=== PATIENT | male | born 1955 | race African-American/Black ===

== ENCOUNTER 2020-04-30 22:33 | Inpatient (IN) | payer OTHER ==
[~2020-04-30] VITALS: Ht 177.8 cm; Wt 69.9 kg
--- NOTE | ~2020-04-30 | EMS ---
[facility] [address] [place] [address] EMS Patient Care Report Name: SANDRA GILLILAND Room #: 242-P ADM IN M.R.#: [id number] Admission: 05/01/20 Attend Phys: Clint Spears MD Discharge: Date of : 51 Report #: [id number] THIS REPORT FOR: //name// Report Transmitted: 05/01/2020 14:16 EMS Care Summary [place], [place]/[facility] Incident [id number] @ 04/30/2020 21:45 Incident Location [address] [place] [id number] Patient SANDRA GILLILAND Male, 65 Years 1955 Patient Address Patient History Diabetes,Hypertension (HTN), Chief Complaint WEAKNESS/ALTERED MENTAL STATUS Disposition Transported No Lights/[place] Dispatch Reason Unconscious/Fainting Transported To [facility] Narrative DISPATCHED TO AN UNCONSCIOUS. 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 DAUGHTER STATED THAT HE FELL JUST BEFORE SHE CALLED AND WAS BECOMING INCREASINGLY "OUT OF IT". SHE SAID HE HAS BEEN ILL WITH FOOD POISIONING FOR THE PAST FEW DAYS WITH SYMPTOMS OF NAUSEA VOMMITING DIRRHEA AND SHE DOES NOT KNOW IF HE HAS TAKEN HIS MEDICATIONS OR NOT. PATIENT WAS FOUND TO BE SLOW TO RESPOND WHEN QUESTIONED AND UNAWARE OF THE CURRENT SITUATION. HE SAID HE WAS NOT HURTING ANYWHERE, BUT THAT HE JUST FELT WEAK. HIS BLOOD SUGAR AND VITALS WERE CHECKED BEDSIDE AND HE WAS PLACED ON OXYGEN VIA NASAL CANNULA. HE WAS ASSISTED IN STANDING AND SITTING ON THE STAIR CHAIR, SECURED WITH STRAPS, AND MOVED TO THE COT WHERE HE WAS [facility] [address] [place] [address] EMS Patient Care Report Name: SANDRA GILLILAND Room #: 242-P ADM IN M.R.#: [id number] Admission: 05/01/20 Attend Phys: Clint Spears MD Discharge: Date of : 51 Report #: [id number] ASSISTED IN STANDING AND SITTING ON THE COT, SECURED WITH STRAPS, AND MOVED TO THE AMBULANCE. PATIENT'S VITALS WERE REOBTAIND ALONG WITH A 12 LEAD. PATIENT O2 SATURATION WAS NOT ABLE TO BE CONSISTANTLY OBTAINED THROUGH EITHER PULSE OX DUE TO POOR CIRCULATION. HE SAID THIS WAS NORMAL FOR HIM. SEVERAL IVS WERE ATTEMPTED WITH NO SUCCESS, AND PATIENT WAS TRANSPORTED TO THE HOSPITAL. PATIENT VITALS AND INTERVENTIONS WERE MONITORED ENROUTE. ADDITIONAL IV WAS ATTEMPTED AND SECURED ENROUTE. PATIENT WAS ADMINISTERED NORMAL SALINE. PATIENT BECAME MORE ALERT DURING TRANSPORT AND HIS SITUATION WAS EXPLAINED. AGAIN HE SAID HE WAS STILL FEELING WEAK. UPON ARRIVAL AT THE HOSPITAL PATIENT WAS MOVED TO ED ROOM 6 ON THE COT AND LIFTED OVER TO THE HOSPITAL BED. PATIENT CARE WAS TURNED OVER TO ED NURSING STAFF. Initial Vitals @22:10P: 127,BP: 73/53, @21:55P: 68,SpO2: 82, @21:53P: 43,SpO2: 77, @22:29BP: 92/66, @22:31P: 124,SpO2: 72, @22:11P: 126,ID Suspected: false @22:26P: 122,R: 16,BP: 109/77,Pain: 0/10,GCS: 15,Revised Trauma: 12, @22:03P: 130,R: 16,BP: 62/42,Pain: 0/10,GCS: 14,Glucose: -2,Revised Trauma: 10, @22:01P: 66,SpO2: 67, Assessments @21:50MENTAL:Confused,Person Oriented,Place Oriented,SKIN:Cold,HEENT:Head/Face: No Abnormalities,Neck/Airway: No Abnormalities,LUNG SOUNDS:General: Vomiting,General: Nausea,General: Diarrhea,Left Upper: No Abnormalities,Right Upper: No Abnormalities,Left Lower: No Abnormalities,Right Lower: No Abnormalities,ABDOMEN:General: Vomiting,General: Nausea,General: Diarrhea,Left Upper: No Abnormalities,Right Upper: No Abnormalities,Left Lower: No Abnormalities,Right Lower: No Abnormalities,PELVIS//GI:No Abnormalities,EXTREMITIES:Capillary Refill: Right Upper: 3 Sec,Left Arm: No Abnormalities,Right Arm: No Abnormalities,Left Leg: No Abnormalities,Right Leg: No Abnormalities,PULSE:Radial: 2+ Normal,NEURO:Weakness Right-Sided,Weakness Left-Sided,@22:20MENTAL:Person Oriented,Place Oriented,Time Oriented,Event Oriented,SKIN:HEENT:LUNG SOUNDS:ABDOMEN:PELVIS//GI:EXTREMITIES:PULSE:NEURO: Impression Hypotension Procedures @22:1112-Lead ECGResponse: UnchangedSucceeded@21:533-Lead ECGResponse: UnchangedSucceeded@22:15Saline Lock 0cc (20 ga) Site: Antecubital-LeftResponse: UnchangedFailed@22:17Saline Lock 0cc (20 ga) Site: Hand-RightResponse: UnchangedFailed@22:18Saline Lock 0cc (20 ga) Site: Antecubital-RightResponse: UnchangedFailed@21:50ALS AssessmentResponse: UnchangedSucceeded@22:20Normal [address] [address] EMS Patient Care Report Name: SANDRA GILLILAND Room #: 242-P [facility] IN [facility]#: [id number] Admission: 05/01/20 Attend Phys: Clint Spears MD Discharge: Date of : 51 Report #: [id number] Saline (.9% NaCl) 200cc (20 ga) Site: Hand-RightResponse: UnchangedSucceeded@21:54Oxygen FlowRate: 4 Device: Nasal Cannula (NC) Response: ImprovedSucceeded Timeline 21:44,Call Received 21:44,Dispatch Notified 21:45,Dispatched 21:46,En Route 21:48,On Scene 21:50,At Patient 21:50,ALS Assessment,Response: UnchangedSucceeded, 21:53,3-Lead ECG,Response: UnchangedSucceeded, 21:53,BP: / M,PULSE: 43,RR: R,SPO2: 77 Ox,ETCO2: ,BG: ,PAIN: ,GCS: , 21:54,Oxygen FlowRate: 4 Device: Nasal Cannula (NC) Response: ImprovedSucceeded, 21:55,BP: / M,PULSE: 68,RR: R,SPO2: 82 Ox,ETCO2: ,BG: ,PAIN: ,GCS: , 22:01,BP: / M,PULSE: 66,RR: R,SPO2: 67 Ox,ETCO2: ,BG: ,PAIN: ,GCS: , 22:03,BP: 62/42 M,PULSE: 130,RR: 16 R,SPO2: Ox,ETCO2: ,BG: -2,PAIN: 0,GCS: 14, 22:10,BP: 73/53 M,PULSE: 127,RR: R,SPO2: Ox,ETCO2: ,BG: ,PAIN: ,GCS: , 22:11,12-Lead ECG,Response: UnchangedSucceeded, 22:11,BP: / M,PULSE: 126,RR: R,SPO2: Ox,ETCO2: ,BG: ,PAIN: ,GCS: , 22:15,Saline Lock 0cc 20 ga Site: Antecubital-Left,Response: UnchangedFailed, 22:17,Saline Lock 0cc 20 ga Site: Hand-Right,Response: UnchangedFailed, 22:18,Saline Lock 0cc 20 ga Site: Antecubital-Right,Response: UnchangedFailed, 22:18,Depart Scene 22:20,Normal Saline (.9% NaCl) 200cc 20 ga Site: Hand-Right,Response: UnchangedSucceeded, 22:26,BP: 109/77 M,PULSE: 122,RR: 16 R,SPO2: Ox,ETCO2: ,BG: ,PAIN: 0,GCS: 15, 22:29,At Destination 22:29,BP: 92/66 M,PULSE: ,RR: R,SPO2: Ox,ETCO2: ,BG: ,PAIN: ,GCS: , 22:31,BP: / M,PULSE: 124,RR: R,SPO2: 72 Ox,ETCO2: ,BG: ,PAIN: ,GCS: , 22:35,Call Closed Disclaimer v1.1 Copyright 2020 [employer] This EMS Care Summary contains data elements from the applicable legal record (which may be displayed differently). It is designed to provide pertinent information for the following purposes: continuity of care, clinical quality, and state data reporting. The complete legal record is available to ED staff and administrators of the receiving hospital in [employer] Patient Tracker. All data is provided "as is."
[~2020-04-30 22:33] MED LIST: CITRATE OF MAG296 ML PO; COLACE100 MG PO; CYCLOBENZAPRINE5 MG PO; GLYBURIDE 5 MG T5 M1 PO; HYDROCHLOROTHIA25 M2 PO; IBUPROFEN 800800 M1 PO; LEVEMIR SUBQ; LISINOPRIL10 MG PO; METFORMIN HCL500 MG PO; MIRALAX17 GM PO; RANITIDINE 150150 M1 PO
[2020-04-30 22:35] VITALS: BP 129/85
[2020-04-30 23:04] LABS: BE(vivo) -6.4 mmol/L (-2 to +3); HCO3 19.6 mmol/L (22.0-26.0); PCO2 VENOUS 40.8 mmHg (41.0-51.0); PO2 VENOUS 36.5 mmHg (35.0-45.0)
[2020-04-30 23:10] LABS: ABSOLUTE NEUTROPHILS 10.8 thou/uL (1.4-8.2); BASOPHILS 0.1 % (0.0-2.0); HEMATOCRIT 47.3 % (42.0-52.0); HEMOGLOBIN 14.9 gm/dL (14.0-18.0); LYMPHOCYTES 11.1 % (24.0-44.0); MCH 29.1 pg (26.0-34.0); MCHC 31.5 g/dL (28.0-37.0); MCV 92.3 fL (80.0-100.0); MONOCYTES 3.2 % (1.0-8.0); PLATELET COUNT 236 thou/uL (150-400); POLYS 85.6 % (36.0-66.0); RBC 5.13 mil/uL (4.50-6.00); RDW 14.2 % (10.5-14.5); WBC 12.6 thou/uL (4.0-11.0)
[2020-04-30 23:27] LABS: ALBUMIN 3.4 g/dL (3.4-5.0); ANION GAP 23 mmol/L (7-16); BUN 84 mg/dL (7-18); CALCIUM 9.8 mg/dL (8.5-10.1); CHLORIDE 94 mmol/L (98-107); CO2 22 mmol/L (21-32); POTASSIUM 5.5 mmol/L (3.5-5.1); SGOT 12 U/L (15-37); SGPT 22 U/L (30-65); SODIUM 139 mmol/L (136-145); TOTAL BILIRUBIN 0.7 mg/dL (0.2-1.0); TOTAL PROTEIN 7.7 g/dL (6.4-8.2); TROPONIN-I <0.06 ng/mL (<0.06)
[2020-04-30 23:29] LABS: URINE BILIRUBIN NEGATIVE (Negative); URINE BLOOD NEGATIVE (Negative); URINE CLARITY CLEAR; URINE COLOR YELLOW; URINE GLUCOSE-RANDOM* 3+ (Negative); URINE KETONES 1+ (Negative); URINE LEUKOCYTES-REFLEX NEGATIVE (Negative); URINE NITRITE-REFLEX NEGATIVE (Negative); URINE PROTEIN (DIPSTICK) NEGATIVE (Negative); URINE SPECIFIC GRAVITY 1.015 (1.005-1.035); URINE UROBILINOGEN 0.2 E.U./dl (0.2-1.0)
[2020-04-30 23:29] LABS: GLUCOSE 689 mg/dL (74-106)
[2020-04-30] MEDS ORDERED: PIOGLITAZONE30 MG PO (23:53)
[2020-04-30] MEDS ORDERED: PRAVACHOL40 MG PO (23:54)
[2020-04-30] MEDS ORDERED: LISINOPRIL PO (23:54)
[2020-04-30] MEDS ORDERED: METFORMIN HCL500 M3 PO (23:55)
[2020-04-30] MEDS ORDERED: LEVEMIR100 UNIT/1 SUBQ (23:56)
[2020-05-01] VITALS (44 sets, daily range): BP systolic 77–129; BP diastolic 41–84
[2020-05-01 03:17] LABS: HEMATOCRIT 42.3 % (42.0-52.0); MCH 29.4 pg (26.0-34.0); MCHC 33.1 g/dL (28.0-37.0); MCV 88.9 fL (80.0-100.0); RBC 4.76 mil/uL (4.50-6.00); RDW 13.9 % (10.5-14.5); WBC 14.2 thou/uL (4.0-11.0)
[2020-05-01 03:28] LABS: CALCIUM 8.8 mg/dL (8.5-10.1); CREATININE 2.3 mg/dL (0.7-1.3)
[2020-05-01 03:30] LABS: POTASSIUM 4.4 mmol/L (3.5-5.1)
[2020-05-01 03:47] LABS: ALBUMIN 3.3 g/dL (3.4-5.0); ANION GAP 19 mmol/L (7-16); BUN 78 mg/dL (7-18); CALCIUM 8.7 mg/dL (8.5-10.1); CHLORIDE 104 mmol/L (98-107); CHOLESTEROL 178 mg/dL (<200); CO2 23 mmol/L (21-32); CREATININE 2.7 mg/dL (0.7-1.3); GLUCOSE 442 mg/dL (74-106); HDL CHOLESTEROL 47 mg/dL (>40); LDL CHOLESTEROL 107 mg/dL (<100); PHOSPHORUS 3.8 mg/dL (2.5-4.9); POTASSIUM 4.5 mmol/L (3.5-5.1); SODIUM 146 mmol/L (136-145); TC:HDL 3.8 Ratio (Not establshd); TRIGLYCERIDE 123 mg/dL (<150); VLDL 25 mg/dL (<40)
[2020-05-01 03:48] LABS: SERUM ASSESSMENT Clear
--- NOTE | 2020-05-01 04:18 | NUR ---
TRIED TO CALL REPORT. NO ANSWER
--- NOTE | 2020-05-01 04:35 | NUR ---
TRIED TO CALL REPORT. NURSE UNAVAILABLE.
--- NOTE | 2020-05-01 04:41 | NUR ---
TRIED TO CALL REPORT. NO ANSWER.
--- NOTE | 2020-05-01 07:28 | NUR ---
ASSUMED PT CARE AT 0530 FROM ER. ADMISSION ASSESSMENT DONE. PT ON INSULIN GTT AT 8.6U/HR UPON ASUMPTION OF CARE TIRATED NEEDED. SPOKE TO DTR AND UPDATED HER ABOUT PT STATUS. PT IS STABLE FOR NOW. WILL CONTINUE TO MONITOR.
--- NOTE | 2020-05-01 08:05 | EKG ---
[facility] [place] [address] ELECTROCARDIOGRAM REPORT Name: SANDRA GILLILAND Room #: 242-P ADM IN M.R.#: [id number] Admission: 05/01/20 Attend Phys: Clint Spears MD Discharge: Date of : 51 Report #: [id number] THIS REPORT FOR: cc: [facility] - Clinic physician unknown [facility] - Clinic physician unknown Mohit Heath MD [facility] ~ THIS REPORT FOR: //name// [facility] ED Test Date: 2020-04-30 Test Time: 22:50:16 Pat Name: SANDRA GILLILAND Department: Room: [facility] Gender: M Note Specialist: [facility] 1955 Requested By: Cornell Amato Order Number: [id number] MD: Mohit Heath Measurements Intervals [place] Rate: 120 P: 76 CA: 115 QRS: 77 QRSD: 93 T: 8 QT: 330 QTc: 467 Interpretive Statements Sinus tachycardia Baseline wander in lead(s) V2,V5 No previous ECG available for comparison Electronically Signed On 05-01-2020 8:05:17 CDT by Mohit Heath [email or web address] <ELECTRONICALLY SIGNED> By: Mohit Heath MD, FACC 05/01/20 0805 [id number] Mohit Heath MD, [facility] /EPI
[2020-05-01 08:26] LABS: ALBUMIN 2.9 g/dL (3.4-5.0); CALCIUM 7.9 mg/dL (8.5-10.1); CREATININE 1.9 mg/dL (0.7-1.3); PHOSPHORUS 2.6 mg/dL (2.5-4.9); POTASSIUM 4.4 mmol/L (3.5-5.1)
[2020-05-01 11:05] LABS: ALBUMIN 2.6 g/dL (3.4-5.0); CALCIUM 7.5 mg/dL (8.5-10.1); CREATININE 1.7 mg/dL (0.7-1.3); PHOSPHORUS 1.1 mg/dL (2.5-4.9); POTASSIUM 3.5 mmol/L (3.5-5.1)
--- NOTE | 2020-05-01 13:33 | NUR ---
CALLED DR. PACHECO REGARDING PT'S LOW BLOOD GLUCOSE AND PT NAUSEOUS/VOMITING. ORDERS TO KEEP PT ON CLEAR LIQUIDS AND BRING THE BLOOD GLUCOSE UP.
--- NOTE | 2020-05-01 17:09 | NUR ---
chart review. pt on insulin drip. unable to visit with unruly marshall resting. noted per chart, daughter got him here, support from his daughter. independent when feeling ok. will cont following as needed for dc needs. dcp home when stable.
--- NOTE | 2020-05-01 19:46 | NUR ---
DR PACHECO ORDERED A ML FOR INSULIN GTT, VANCO, LAB DRAWS, ETC. ML NOT APPROPRIATE AND NEEDING A CLARIFICATION FOR A PICC. RN WANTED A PIV PLACED IN ADDITION TO THE PIV HE HAS. 2.5 INCH PIV PLACED RICHIE WITH NO VANCO LABELED. PT HAS A WORKING PIV IN LT WRIST AREA. PT ALSO EXTREMELY AGITATED AND INNAPROPRIATE.
[2020-05-02] VITALS (16 sets, daily range): BP systolic 76–116; BP diastolic 42–68
[2020-05-02 00:06] LABS: GLYCOHEMOGLOBIN (HGB A1C) 11.1 % (4.8-5.6)
--- NOTE | 2020-05-02 04:00 | NUR ---
ASSUMED CARE OF PT. CURRENTLY SLEEPING SINUS RHYTHM. MAINT IV AT 150/HR
[2020-05-02 05:36] LABS: ALBUMIN 2.1 g/dL (3.4-5.0); CALCIUM 7.1 mg/dL (8.5-10.1); CREATININE 1.4 mg/dL (0.7-1.3); PHOSPHORUS 1.8 mg/dL (2.5-4.9); POTASSIUM 3.4 mmol/L (3.5-5.1)
--- NOTE | 2020-05-02 06:00 | NUR ---
RESTING QUIETLY NO CONCERNS 1999 CC UO THIS SHIFT. DENIES DISCOMFORT WILL CONT TO MONITOR
[2020-05-02 06:06] LABS: HEMATOCRIT 28.6 % (42.0-52.0); MCH 29.9 pg (26.0-34.0); MCHC 33.4 g/dL (28.0-37.0); MCV 89.6 fL (80.0-100.0); RBC 3.19 mil/uL (4.50-6.00); RDW 14.1 % (10.5-14.5); WBC 9.3 thou/uL (4.0-11.0)
[2020-05-02 06:21] LABS: HEMOGLOBIN 9.5 gm/dL (14.0-18.0)
--- NOTE | 2020-05-02 09:10 | NUR ---
cm consult for dcp. desean spoke with bedside nurse, unruly reports he does has cell phone with him but doesnt know his number. therapy going to work with him and will cont following as needed for dc needs.
--- NOTE | 2020-05-02 10:44 | NUR ---
PATIENT ALERT AN AWAKE THIS MORNING, PLEASANT AND COOPERATIVE WITH CARES. DENIES PAIN, SOA, NAUSEA OR VOMITING. UP TO CHAIR WITH OCCUPATIONAL THERAPY WITH JUST CONTACT GAURD ASSIST. PATIENT ALSO GAVE SELF SPONGE BATH. PATIENT WAS ALSO ABLE TO WALK WITH PHYSICAL THERAPY AROUND THE ICU. DECENT APPITITE AT BREAKFAST THIS MORNING. NO CONCERNS AT THIS TIME. WILL CONTINUE TO MONITOR AND CARE PER PLAN OF CARE.
--- NOTE | 2020-05-02 14:34 | NUR ---
65 YR OLD MALE CAME IN WITH DKA, ACHS AND ON SLIDING SCALE, AND IS SINUS RYTHYM. PT IS A&OX4, VSS, AMBULATES BY CANE, WHEELCHAIR, WALKER. PT CAME FROM HOME AND IS ON CARB CONTROL DIET. PT NEED TO BE ON 3L OXYGEN WHILE SLEEP. RIGHT FOOT PARTIAL AMPUTATED. FALL PRECAUTIONS IN PLACE, WILL CONTINUE TO MONITOR.
--- NOTE | 2020-05-03 02:29 | NUR ---
ASSESSED AT START OF SHIFT. PT A&OX4, DENIES PAIN, N/V. BSG CHECKED 280 INSULIN COVERAGE PROVIDED. FOLLEY INTACT. FALL PREC IN PLACE AND CALL LIGHT IN REACH. NO FURTHER SIGNS OF DISTRESS WILL CONT TO MONITOR.
[2020-05-03 06:10] LABS: ABSOLUTE NEUTROPHILS 4.2 thou/uL (1.4-8.2); BASOPHILS 0.2 % (0.0-2.0); EOSINOPHILS 1.2 % (0.0-3.0); HEMATOCRIT 29.2 % (42.0-52.0); HEMOGLOBIN 9.8 gm/dL (14.0-18.0); LYMPHOCYTES 32.7 % (24.0-44.0); MCH 30.2 pg (26.0-34.0); MCHC 33.6 g/dL (28.0-37.0); MCV 89.8 fL (80.0-100.0); MONOCYTES 5.8 % (1.0-8.0); PLATELET COUNT 142 thou/uL (150-400); POLYS 60.1 % (36.0-66.0); RBC 3.25 mil/uL (4.50-6.00); WBC 6.9 thou/uL (4.0-11.0)
[2020-05-03 06:49] LABS: ALBUMIN 2.1 g/dL (3.4-5.0); CALCIUM 7.5 mg/dL (8.5-10.1); CREATININE 1.3 mg/dL (0.7-1.3); POTASSIUM 3.5 mmol/L (3.5-5.1); TOTAL BILIRUBIN 0.3 mg/dL (0.2-1.0); TOTAL PROTEIN 5.1 g/dL (6.4-8.2)
[2020-05-03 07:50] VITALS: BP 100/60
[2020-05-03 09:41] VITALS: BP 116/60
--- NOTE | 2020-05-03 09:42 | NUR ---
ON-GOING ASSESSMENT: PT TRASNFERED FROM ICU TO 4S. CM MET WITH PT TODAY PHYSICIAN STATING PATIENT IS STABLE TO DISCHARGE. HOME HEALTH WAS ORDERED. CM MET WITH PATIENT TO DISCUSS HH OPTIONS AND PT DECLINED SERVICES. PT REPORTS HE DOES NOT WANT ANYONE IN HIS HOME AND STATES HE LIVES WITH HIS DAUGHTER. CM DISCUSSED BENEFITS OF HH SERVICES AND PT REFUSED. CM NOTIFIED ATTENDING. PLANS ARE FOR PATIENT TO DISCHARGE TODAY. CM ATTMPTED TO CONTACT PTS DAUGHTER BUT UNABLE TO REACH AT THIS TIME.
--- NOTE | 2020-05-03 18:06 | NUR ---
PT IS AOX3-4, VS, DENIES PAIN. BS CONTROLLED WITH S/S INSULIN AND SCHEDULED. PT IV DC'D. DISCHARGE INSTRUCTIONS RECEIVED. PT VERBALIZED UNDERSTANDING. BELONGINGS PACKED AND SENT HOME.
--- NOTE | 2020-05-04 18:32 | HC ---
[facility] [place] [address] CONSULTATION Name: SANDRA GILLILAND Room #: 443-P [facility] IN .R.#: [id number] Admission: 05/01/20 Attend Phys: Clint Spears MD Discharge: 05/03/20 Date of : 51 Report #: [id number] THIS REPORT FOR: cc: [facility] - Clinic physician unknown [facility] - Clinic physician unknown Marielena Edmond MD ~ CC: Clint WALKER unknown REASON FOR CONSULTATION: Elevated creatinine. REASON FOR PRESENTATION: Brought by his family member due to nausea, vomiting. HISTORY OF PRESENT ILLNESS: A 65-year-old who lives with his daughter. He was brought by his daughter because of persistent nausea and vomiting, increased weakness and confusion over the last few days. There is a reported incidence of syncope. His daughter called 911. On arrival of the EMS, the patient's blood sugar was in the 600s with a blood pressure in the 60s. He was brought to the Emergency Room for further evaluation and management. The patient does not really know anything about his previous kidney problems or kidney levels. On presentation, the patient's creatinine was 3.0 and has gone to 2.3. Listed amongst his outpatient medications is nonsteroidal anti-inflammatory medication, hydrochlorothiazide, metformin, insulin. PAST MEDICAL HISTORY: Diabetes mellitus and hypertension. PAST SURGICAL HISTORY: Right partial foot amputation. SOCIAL HISTORY: No drug or alcohol abuse. Lives with his daughter. FAMILY HISTORY: Heart disease and diabetes mellitus. REVIEW OF SYSTEMS: GENERAL: Significant for weakness and lethargy. CARDIOVASCULAR: No chest pain or palpitation. PULMONARY: No cough or hemoptysis. GASTROINTESTINAL: As per the history of present illness. GENITOURINARY: No frequency, no urgency. MUSCULOSKELETAL: No myalgias. No back pain. NEUROLOGICAL: As per the history of present illness. PHYSICAL EXAMINATION: GENERAL: The patient is weak, lethargic. VITAL SIGNS: Blood pressure is 108/55, pulse rate is 112. HEAD AND NECK: No jugular venous distention. CHEST: Decreased air entry bilaterally. CARDIOVASCULAR: No rub. [facility] [address] [place] [address] CONSULTATION Name: DARSHANASANDRA Aden Room #: 443-P [facility] IN ..#: [id number] Admission: 05/01/20 Attend Phys: Clint Spears MD Discharge: 05/03/20 Date of : 51 Report #: [id number] ABDOMEN: Soft. EXTREMITIES: Lower extremities, no edema. LABORATORY DATA: White blood cell count 14.2. Sodium is 145, potassium 4.4, BUN is 79, creatinine is 2.3. Blood sugar is 450. ASSESSMENT, IMPRESSION AND PLAN: 1. Acute kidney injury due to prerenal causes and dehydration. 2. Elevated blood sugar. 3. Hypotension. 4. The patient's acute kidney injury is well explained by his presentation and high blood sugar. He seems to have responded to IV fluid. 5. Continue with the D5 half normal. 6. Monitor blood sugar. 7. Monitor blood pressure. 8. Blood sugar control. 9. Expect his kidney function to continue to improve over the next few days. 10. Usual and routine acute kidney injury care including watching electrolytes, urine output, avoiding nephrotoxins and adjusting all medications to his estimated GFR. <ELECTRONICALLY SIGNED> By: Marielena Edmond MD 05/04/20 1832 [id number] Marielena Edmond MD /nt
== END 2020-05-03 13:12 | disposition home health service (06) | DRG 871 ==
LOC: ER 22:33 → EROBS 05-01 03:18 → 4S 05-01 03:18 → ICU 05-01 03:18 → 4S 05-02 13:40
PROVIDERS: Emergency Medicine; Nurse Practitioner Family; ADMIT Hospitalist; ATTEND Hospitalist
DX: A41.9 Sepsis, unspecified organism (principal); E11.10 Type 2 diabetes mellitus with ketoacidosis without coma; G93.41 Metabolic encephalopathy; E11.00 Type 2 diabetes mellitus with hyperosmolarity without nonketotic hyperglycemic-hyperosmolar coma (NKHHC); N17.0 Acute kidney failure with tubular necrosis; E87.2 Acidosis; E46 Unspecified protein-calorie malnutrition; F17.210 Nicotine dependence, cigarettes, uncomplicated; I95.9 Hypotension, unspecified; E86.0 Dehydration; G47.00 Insomnia, unspecified; D72.829 Elevated white blood cell count, unspecified; I10 Essential (primary) hypertension; Z82.49 Family history of ischemic heart disease and other diseases of the circulatory system; Z83.3 Family history of diabetes mellitus; Z89.431 Acquired absence of right foot; Z79.899 Other long term (current) drug therapy; Z91.19 Patient's noncompliance with other medical treatment and regimen; Z68.22 Body mass index [BMI] 22.0-22.9, adult
CPT/HCPCS: 10078; 10102